=== PATIENT | male | born 1960 | race Two or more races ===

== ENCOUNTER 2025-04-30 15:10 | Inpatient (IN) | payer MEDICARE, OTHER ==
[~2025-04-30] VITALS: Ht 167.6 cm; Wt 97.5 kg
[2025-04-30 15:40] LABS: PLATELET COUNT (AUTO) 132 K/uL (152-348); RED BLOOD CELL COUNT(AUTO) 4.36 MIL/uL (4.06-5.63); RED CELL DISTRIBUTION WIDTH 13.7 % (12.1-16.2); WHITE BLOOD COUNT (AUTO) 5.3 K/uL (3.6-10.2)
[2025-04-30] MEDS ORDERED: DIPH25CA83 PO (15:41)
[2025-04-30] MEDS ORDERED: CRAN450T9 PO (15:41)
[2025-04-30] MEDS ORDERED: FOLI1TAB94 PO (15:41)
[2025-04-30] MEDS ORDERED: MAG30ORA PO (15:41)
[2025-04-30] MEDS ORDERED: MULT-213 PO (15:41)
[2025-04-30] MEDS ORDERED: GEMF600T90 PO (15:41)
[2025-04-30] MEDS ORDERED: DIVA500T2 PO ×2 (15:41)
[2025-04-30] MEDS ORDERED: QUET50TA PO (15:41)
[2025-04-30] MEDS ORDERED: RIVA10TA PO (15:41)
[2025-04-30] MEDS ORDERED: MAGN400O6 PO (15:41)
[2025-04-30] MEDS ORDERED: MEMA10TA PO (15:41)
[2025-04-30] MEDS ORDERED: CHOL2000 PO (15:41)
[2025-04-30] MEDS ORDERED: GABA300C PO (15:41)
[2025-04-30] MEDS ORDERED: LORA5SOL38 PO (15:41)
[2025-04-30] MEDS ORDERED: SENN8.6T19 PO (15:41)
[2025-04-30] MEDS ORDERED: ASCO500C18 PO (15:41)
[2025-04-30] MEDS ORDERED: QUET200T PO (15:41)
[2025-04-30] MEDS ORDERED: [UNRECOGNIZED DRUG - CODE] PO (15:41)
[2025-04-30] MEDS ORDERED: ACET325C7 PO (15:41)
[2025-04-30] MEDS ORDERED: BACL10TA PO (15:41)
[2025-04-30] MEDS ORDERED: TAMS-3 PO (15:41)
[2025-04-30] MEDS ORDERED: DOCU250C16 PO (15:41)
[2025-04-30 15:49] LABS: ETHANOL < 3 MG/DL (0-10)
[2025-04-30 15:50] LABS: *BILIRUBIN,URIN NEGATIVE (NEGATIVE); *BLOOD, URINE NEGATIVE (NEGATIVE); *CLARITY,URINE CLEAR (CLEAR); *COLOR,URINE YELLOW (YELLOW); *KETONES,URINE NEGATIVE (NEGATIVE); *PROTEIN,URINE NEGATIVE (NEGATIVE); *UROBILINOGEN,URINE 0.2 E.U./dl (NORMAL); LEUKOCYTE ESTERASE ,URINE NEGATIVE (NEGATIVE); NITRITE, URINE NEGATIVE (NEGATIVE); UGLUCOSE NEGATIVE (NEGATIVE)
[2025-04-30 15:52] LABS: CREATININE 1.1 mg/dL (0.6-1.3); SODIUM SERUM 143 mmol/L (136-145); UREA NITROGEN, BLOOD 23 mg/dL (7-18)
[2025-04-30 15:58] LABS: ASPARTATE AMINOTRANSFERASE 20 U/L (15-37); CREATINE KINASE, TOTAL 103 U/L (39-308); TOTAL PROTEIN, SERUM 8.6 g/dL (6.4-8.2)
[2025-04-30 15:58] LABS: *AMPHETAMINE, URINE NEGATIVE (NEGATIVE); *BARBITURATE, URINE NEGATIVE (NEGATIVE); *BENZODIAZEPINE, URINE NEGATIVE (NEGATIVE); *CANNABINOID, URINE NEGATIVE (NEGATIVE); *COCCAINE, URINE NEGATIVE (NEGATIVE); *OPIATE, URINE NEGATIVE (NEGATIVE); *PHENCYCLIDINE SCREEN,URINE NEGATIVE (NEGATIVE); FENTANYL, URINE NEGATIVE (NEGATIVE)
[2025-04-30 22:21] VITALS: BP 122/73
[2025-05-01 00:30] VITALS: BP 116/61; TEMP 97.5; O2SAT 98
[2025-05-01] MEDS ORDERED: LORAZEPAM 1 MG TABLET PO PRN (01:15)
[2025-05-01] MEDS ORDERED: MAGNESIUM HYDROXIDE 30 ML LIQUID UDC PO PRN (01:15)
[2025-05-01] MEDS ORDERED: MAG HYDROX/AL HYDROX/SIMETH 30 ML LIQUID UDC PO PRN (01:15)
[2025-05-01] MEDS: TEMAZEPAM 7.5 MG CAPSULE PO PRN (01:33)
[2025-05-01] MEDS: ACETAMINOPHEN 325 MG TABLET PO PRN (02:48)
[2025-05-01] MEDS ORDERED: ASCO-340 PO (09:20)
[2025-05-01] MEDS ORDERED: ACET-2154 PO (09:20)
[2025-05-01] MEDS ORDERED: LORA-114 PO (09:20)
[2025-05-01] MEDS ORDERED: CHOL-35 PO (09:20)
[2025-05-01 09:29] VITALS: BP 105/56; TEMP 98; O2SAT 98
[2025-05-01] MEDS: CHOLECALCIFEROL 1,000 UNIT TABLET PO SCH (14:09)
[2025-05-01] MEDS: FOLIC ACID 1 MG TABLET PO SCH (14:09)
[2025-05-01] MEDS: MULTIVIT, IRON, MIN NO. 8, FA TABLET PO SCH (14:10)
[2025-05-01] MEDS: ASCORBIC ACID 500 MG TABLET PO SCH (14:10)
[2025-05-01] MEDS: GABAPENTIN 300 MG CAPSULE PO SCH (14:10)
[2025-05-01 15:10] VITALS: BP 117/77; TEMP 98; O2SAT 98
[2025-05-01] MEDS: MEMANTINE HCL 10 MG TABLET PO SCH (18:11)
[2025-05-01] MEDS: QUETIAPINE FUMARATE 25 MG TABLET PO SCH (18:11)
[2025-05-01] MEDS: GEMFIBROZIL 600 MG TABLET PO SCH (18:12)
[2025-05-01] MEDS: DOCUSATE SODIUM 250 MG CAPSULE PO SCH (18:12)
[2025-05-01] MEDS: SENNOSIDES 1 TABLET PO SCH (18:12)
[2025-05-01] MEDS: DIVALPROEX 500 MG TABLET.DR PO SCH ×2 (18:12→20:14)
[2025-05-01] MEDS: BACLOFEN 10 MG TABLET PO SCH (18:12)
[2025-05-01] MEDS: RIVAROXABAN 10 MG TABLET PO SCH (18:14)
[2025-05-01 19:57] VITALS: BP 133/82; TEMP 97.8; O2SAT 98
[2025-05-01] MEDS: TAMSULOSIN HCL 0.4 MG CAP.SR.24H PO SCH (20:14)
[2025-05-01] MEDS: QUETIAPINE FUMARATE 200 MG TABLET PO SCH (20:14)
[2025-05-02 08:09] VITALS: BP 128/63; TEMP 98; O2SAT 99
[2025-05-02] MEDS: LORATADINE 10 MG TABLET PO SCH (08:27)
[2025-05-02] MEDS: PROTEIN SUPPLEMENT (PROSTAT) 30 ML LIQUID GT SCH (09:20)
[2025-05-02 10:11] LABS: ASPARTATE AMINOTRANSFERASE 18.0 U/L (15-37); CREATININE 1.0 mg/dL (0.6-1.3); SODIUM SERUM 144.0 mmol/L (136-145); TOTAL PROTEIN, SERUM 8.0 g/dL (6.4-8.2); UREA NITROGEN, BLOOD 22.0 mg/dL (7-18)
[2025-05-02 15:59] VITALS: BP 116/64; TEMP 98; O2SAT 98
[2025-05-02 20:00] VITALS: BP 113/69; TEMP 98; O2SAT 99
[2025-05-03 08:22] VITALS: BP 144/80; TEMP 98; O2SAT 98
[2025-05-03 16:36] VITALS: BP 118/64; TEMP 98; O2SAT 98
[2025-05-03 21:08] VITALS: BP 104/61; TEMP 98.2; O2SAT 97
[2025-05-04 08:55] VITALS: BP 128/79; TEMP 98; O2SAT 98
[2025-05-04 16:26] VITALS: BP 126/71; TEMP 98; O2SAT 98
[2025-05-04 20:00] VITALS: BP 124/75; TEMP 98.1; O2SAT 98
[2025-05-05 09:42] VITALS: BP 119/68; TEMP 98; O2SAT 98
[2025-05-05 20:00] VITALS: BP 130/71; TEMP 97.6; O2SAT 98
[2025-05-05] MEDS: QUETIAPINE FUMARATE 100 MG TABLET PO SCH (20:22)
[2025-05-06 08:45] VITALS: BP 122/68; TEMP 97.4; O2SAT 97
[2025-05-06 17:36] VITALS: BP 116/72; TEMP 97.4; O2SAT 98
[2025-05-06 19:54] VITALS: BP 122/71; TEMP 97.9; O2SAT 100
[2025-05-06] MEDS: QUETIAPINE FUMARATE 100 MG TABLET PO SCH (20:59)
[2025-05-06] MEDS: HYDROCODONE/APAP 5-325MG TABLET PO PRN (21:54)
[2025-05-07 08:17] VITALS: BP 124/82; TEMP 97.8; O2SAT 100
[2025-05-07 16:16] VITALS: BP 132/75; TEMP 98; O2SAT 98
[2025-05-07 20:07] VITALS: BP 130/74; TEMP 98.1; O2SAT 98
[2025-05-08 09:23] VITALS: BP 128/77; TEMP 97.5; O2SAT 99
[2025-05-08 16:42] VITALS: BP 110/71; TEMP 98.3; O2SAT 98
[2025-05-08 20:00] VITALS: BP 117/67; TEMP 97.5; O2SAT 98
[2025-05-09 08:33] VITALS: BP 147/78; TEMP 98.2; O2SAT 98
[2025-05-09 15:12] VITALS: BP 124/73; TEMP 98.2; O2SAT 99
[2025-05-09 19:54] VITALS: BP 120/70; TEMP 98.3; O2SAT 96
[2025-05-10 08:07] LABS: CREATININE 0.8 mg/dL (0.6-1.3); SODIUM SERUM 140.0 mmol/L (136-145); UREA NITROGEN, BLOOD 21.0 mg/dL (7-18); VALPROIC ACID 59.0 ug/mL (50-100)
[2025-05-10 08:20] VITALS: BP 123/69; TEMP 98.2; O2SAT 99
[2025-05-10 16:39] VITALS: BP 127/70; TEMP 98.3; O2SAT 96
[2025-05-10 20:00] VITALS: BP 130/73; TEMP 97.4; O2SAT 97
[2025-05-11] MEDS: TEMAZEPAM 7.5 MG CAPSULE PO PRN (01:13)
[2025-05-11 08:02] VITALS: BP 131/75; TEMP 98; O2SAT 97
[2025-05-11 16:14] VITALS: BP 123/70; TEMP 97.7; O2SAT 99
[2025-05-11 19:48] VITALS: BP 123/74; TEMP 97.7; O2SAT 98
[2025-05-11] MEDS: BENZTROPINE MESYLATE 0.5 MG TABLET PO SCH (20:26)
[2025-05-12 07:35] VITALS: BP 115/66; TEMP 97.2; O2SAT 98
[2025-05-12 16:00] VITALS: BP 127/75; TEMP 97.6; O2SAT 98
[2025-05-12 20:00] VITALS: BP 125/74; TEMP 97.7; O2SAT 98
[2025-05-12] MEDS: LORAZEPAM 1 MG TABLET PO PRN (23:20)
[2025-05-13 08:57] VITALS: BP 131/73; TEMP 97.7; O2SAT 99
== END 2025-05-13 12:24 | DRG 885 ==
LOC: ER 15:32 → GPS 20:50
PROVIDERS: ADMIT Psychiatry & Neurology Psychosomatic Medicine; ATTEND Nurse Practitioner Acute Care
DX: F25.0 Schizoaffective disorder, bipolar type (principal); D68.59 Other primary thrombophilia; E44.1 Mild protein-calorie malnutrition; L03.116 Cellulitis of left lower limb; F03.94 Unspecified dementia, unspecified severity, with anxiety; E66.01 Morbid (severe) obesity due to excess calories; Z68.34 Body mass index [BMI] 34.0-34.9, adult; E88.09 Other disorders of plasma-protein metabolism, not elsewhere classified; E03.9 Hypothyroidism, unspecified; E78.5 Hyperlipidemia, unspecified; Z86.14 Personal history of Methicillin resistant Staphylococcus aureus infection; G40.909 Epilepsy, unspecified, not intractable, without status epilepticus; Z79.01 Long term (current) use of anticoagulants; Z79.899 Other long term (current) drug therapy; I87.2 Venous insufficiency (chronic) (peripheral); Z86.718 Personal history of other venous thrombosis and embolism; K21.9 Gastro-esophageal reflux disease without esophagitis; K76.9 Liver disease, unspecified; Z86.011 Personal history of benign neoplasm of the brain; Z86.73 Personal history of transient ischemic attack (TIA), and cerebral infarction without residual deficits; I48.91 Unspecified atrial fibrillation; Z86.79 Personal history of other diseases of the circulatory system; G90.9 Disorder of the autonomic nervous system, unspecified; H26.9 Unspecified cataract
CPT/HCPCS: 36415; 70450; 71045; 80164; 84484; 85025; A4606; A4663; G0480